=== PATIENT | male | born 1980 | race Hispanic/Latino ===

== ENCOUNTER 2016-11-28 20:26 | Emergency (ER) | payer OTHER, SELFPAY ==
--- NOTE | 2016-11-28 21:10 | RAD ---
RIGHT THUMB TWO VIEWS: History: Trauma to thumb. FINDINGS: I do not see any definite signs of an acute fracture. IMPRESSION: No acute fracture. POS: [facility]
== END 2016-11-28 21:10 | disposition home or self-care (01) ==
LOC: NAV ERS 20:26
DX: S60.111A Contusion of right thumb with damage to nail, initial encounter (principal); F17.210 Nicotine dependence, cigarettes, uncomplicated; W23.0XXA Caught, crushed, jammed, or pinched between moving objects, initial encounter
CPT/HCPCS: 11740; 99001